=== PATIENT | male | born 1990 | race Caucasian/White ===

== ENCOUNTER 2017-12-23 18:17 | Emergency (ER) | payer OTHER ==
[~2017-12-23] VITALS: Ht 180.3 cm; Wt 104.3 kg
[2017-12-23] MEDS ORDERED: COZAAR100 MG (18:28)
[2017-12-23] MEDS ORDERED: ASPIRIN81 MG (18:28)
== END 2017-12-23 22:35 | disposition home or self-care (01) ==
LOC: ER 18:17
DX: G51.0 Bell's palsy (principal)